=== PATIENT | female | born 1980 | race Two or more races ===

== ENCOUNTER 2017-04-29 10:13 | Emergency (ER) | payer BC ==
[2017-04-29] MEDS ORDERED: Ondansetron 4 MG/2 ML SDV IVPUSH ONE (10:41)
[2017-04-29] MEDS ORDERED: Sodium Chloride 0.9% 1,000 ML IV ONE (10:41)
[2017-04-29] MEDS ORDERED: Ketorolac 30 MG/ML SDV IVPUSH ONE (11:04)
--- NOTE | 2017-04-29 11:04 | EDM.PDOC ---
ED HPI GENERAL MEDICAL PROBLEM - General Chief Complaint: General Stated Complaint: UNK Time Seen by Provider: 04/29/17 10:17 Source of Information: Reports: Patient History Limitations: Reports: No Limitations - History of Present Illness INITIAL COMMENTS - FREE TEXT/NARRATIVE: HISTORY AND PHYSICAL: History of present illness: Patient is a 36-year-old female who presents to the emergency room with complaints of abdominal pain. Patient had a gastric bypass done "many years ago ". She states she had problems with malabsorption and other complications and had to have the gastric bypass surgery reversed on March 23, 2017. Since that time she has had dizziness, generalized abdominal pain, incisional pain, and nausea postop. Her primary care provider, Dr Garvin, is from [facility] and she does see him on a routine basis to manage these symptoms. She states that she had been giving her liquid [place] which seemed to alleviate her abdominal discomfort. She states that her last prescription was a small volume and it would not last her through the weekend. She since has been trying to get a hold of Dr Garvin and is unsuccessful. A friend of hers said that she should to [place] for evaluation as she has had "bad experience" there. When asked what the patient's primary reason for her evaluation today as she is being managed by her PCP, she states that she would like her pain better controlled. Denies any chest pain, shortness of breath, headache, blurred vision, syncope, vomiting or diarrhea. Patient has a long-standing history of chronic anemia which required her to have multiple iron transfusions and resulted in a hysterectomy. History of anxiety which she does take Zantac as needed for. Review of systems: As per history of present illness and below otherwise all systems reviewed and negative. Past medical history: As per history of present illness and as reviewed below otherwise noncontributory. Surgical history: As per history of present illness and as reviewed below otherwise noncontributory. Social history: No reported history of drug or alcohol abuse. Family history: As per history of present illness and as reviewed below otherwise noncontributory. Physical exam: Gen.: Nontoxic-appearing 36-year-old female. Alert and oriented. HEENT: Atraumatic, normocephalic, pupils reactive, negative for conjunctival pallor or scleral icterus, mucous membranes moist, throat clear, neck supple, nontender, trachea midline. Lungs: Clear to auscultation, breath sounds equal bilaterally, chest nontender. Heart: S1S2, regular, negative for clicks, rubs, or JVD. Abdomen: Soft, nondistended, diffuse tenderness throughout. Healed stab sites noted to the abdomen which she reports are tender with palpation and do have scar tissue under the stab sites. She reports no change in the postoperative sites. Negative for masses or hepatosplenomegaly. Negative for costovertebral tenderness. Pelvis: Stable nontender. Genitourinary: Deferred. Rectal: Deferred. Extremities: Atraumatic, negative for cords or calf pain. Neurovascular unremarkable. Neuro: Awake, alert, oriented. Cranial nerves II through XII unremarkable. Cerebellum unremarkable. Motor and sensory unremarkable throughout. Exam nonfocal. Patient does have a port to her right subclavian area which she states they use for blood draws and medication administration. 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 She has seen the bariatric program checker in [place] who does do gastric bypasses and was told that they would not take her on as client as she has too many comorbidities and complications related to her previous surgery. We did discuss the need for her to follow-up with her physician in [place], who/where the surgery was performed. Patient states she understands but is unsure of when she is going to be able to make it back to [place]. Lab and abdominal CT reviewed with the patient. CT did not demonstrate any acute findings. Patient voices understanding and is requesting a 2 day refill of her with [place]. I will give her enough for 2 days until she is able to follow -up with her primary care provider. We did discuss chronic pain management and that it is not ideal for her to present to the emergency room for her refills. Patient is agreeable to plan of care and denies any further questions at this time. Diagnostics: CBC, CMP, troponin, EKG, CT abdomen and pelvis Therapeutics: IV fluid, Zofran, Dilaudid Impression: Chronic abdominal pain Plan: 1. Please take your medications as prescribed. Do not take this medication while driving or needing to be functioning at work as this may cause drowsiness. You will need to follow-up with your primary care provider for additional refills. 2. As we discussed it would be beneficial for you to follow-up with your surgeon from [place] for further evaluation of your chronic pain post surgery. 3. Return to the ED as needed and as discussed Definitive disposition and diagnosis as appropriate pending reevaluation and review of above. Abdomen Pain Score (Numeric/FACES): 8 - Related Data Allergies Allergy/AdvReac Type Severity Reaction Status Date / Time ceftriaxone [From Rocephin] Allergy Shortness Verified 04/29/17 10:21 of Breath ciprofloxacin [From Cipro] Allergy Hives Verified 04/29/17 10:21 morphine Allergy Hives Verified 04/29/17 10:21 prochlorperazine Allergy Shortness Verified 04/29/17 10:21 [From Compazine] of Breath sulfamethoxazole Allergy Hives Verified 04/29/17 10:21 [From Bactrim] trimethoprim [From Bactrim] Allergy Hives Verified 04/29/17 10:21 Home Meds: Home Meds ALPRAZolam [Xanax] 1 mg PO QID PRN 04/29/17 [History] Past Medical History Psychiatric History: Reports: Anxiety - Past Surgical History GI Surgical History: Reports: Bariatric Procedure Social & Family History - Family History Family Medical History: Noncontributory - Tobacco Use Smoking Status *Q: Never Smoker - Recreational Drug Use Recreational Drug Use: No ED ROS GENERAL - Review of Systems Review Of Systems: ROS reveals no pertinent complaints other than HPI. ED EXAM, GENERAL - Physical Exam Exam: See Below (See dictation) Course - Vital Signs Last Recorded V/S: Last Vital Signs Temp 36.7 C 04/29/17 10:22 Pulse 94 04/29/17 12:39 Resp 20 04/29/17 12:39 BP 96/65 04/29/17 12:39 Pulse Ox 98 04/29/17 12:39 - Orders/Labs/Meds Orders: Active Orders 24 hr Category Date Time Status EKG Documentation Completion [RC] STAT Care 04/29/17 10:41 Active Labs: Laboratory Tests 04/29/17 04/29/17 04/29/17 Range/Units 10:42 10:42 10:42 WBC (4.0-11.0) K/uL RBC (4.30-5.90) M/uL Hgb (12.0-16.0) g/dL Hct (36.0-46.0) % MCV (80.0-98.0) fL MCH (27.0-32.0) pg MCHC (31.0-37.0) g/dL RDW Std Deviation (28.0-62.0) fl RDW Coeff of Love (11.0-15.0) % Plt Count (150-400) K/uL MPV (7.40-12.00) fL Neut % (Auto) (48.0-80.0) % Lymph % (Auto) (16.0-40.0) % [place] % (Auto) (0.0-15.0) % Eos % (Auto) (0.0-7.0) % Baso % (Auto) (0.0-1.5) % Neut # (Auto) (1.4-5.7) K/uL Lymph # (Auto) (0.6-2.4) K/uL Troup # (Auto) (0.0-0.8) K/uL Eos # (Auto) (0.0-0.7) K/uL Baso # (Auto) (0.0-0.1) K/uL Nucleated RBC % /100WBC Nucleated RBCs # K/uL Sodium (136-146) mmol/L Potassium (3.5-5.1) mmol/L Chloride (98-110) mmol/L Carbon Dioxide (21-31) mmol/L BUN (6.0-23.0) mg/dL Creatinine (0.6-1.5) mg/dL Est Cr Clr Drug Dosing Estimated GFR (MDRD) ml/min Glucose (60-110) mg/dL Calcium (8.8-10.8) mg/dL Total Bilirubin (0.1-1.5) mg/dL AST (5-40) IU/L ALT (8-54) IU/L Alkaline Phosphatase (40-150) Troponin I (0.0-0.29) NG/ML Total Protein (6.0-8.0) g/dL Albumin (3.5-5.0) g/dL Globulin (2.0-3.5) g/dL Albumin/Globulin Ratio (1.3-2.8) Amylase (10-90) U/L Lipase (7-80) U/L Urine Color YELLOW Urine Appearance CLEAR Urine pH 6.5 (5.0-8.0) Ur Specific [place] <= 1.005 (1.001-1.035) Urine Protein NEGATIVE (NEGATIVE) mg/dL Urine Glucose (UA) NEGATIVE (NEGATIVE) mg/dL Urine Ketones NEGATIVE (NEGATIVE) mg/dL Urine Occult Blood TRACE-INTACT (NEGATIVE) Urine Nitrite NEGATIVE (NEGATIVE) Urine Bilirubin NEGATIVE (NEGATIVE) Urine Urobilinogen 0.2 (<2.0) EU/dL Ur Leukocyte Esterase NEGATIVE (NEGATIVE) Urine RBC 0-2 (0-2/HPF) Urine WBC 0-1 (0-5/HPF) Ur Epithelial Cells RARE (NONE-FEW) Urine Bacteria RARE (NEGATIVE) Urine HCG, Qual NEGATIVE (NEGATIVE) Urine Opiates Screen NEGATIVE (NEGATIVE) Ur Oxycodone Screen NEGATIVE (NEGATIVE) Urine Methadone Screen NEGATIVE (NEGATIVE) Ur Barbiturates Screen NEGATIVE (NEGATIVE) Ur Phencyclidine Scrn NEGATIVE (NEGATIVE) Ur Amphetamine Screen NEGATIVE (NEGATIVE) U Methamphetamines Scrn NEGATIVE (NEGATIVE) U Benzodiazepines Scrn POSITIVE (NEGATIVE) U Cocaine Metab Screen NEGATIVE (NEGATIVE) U Marijuana (THC) Screen NEGATIVE (NEGATIVE) 04/29/17 04/29/17 Range/Units 10:54 10:54 WBC 2.26 L (4.0-11.0) K/uL RBC 3.23 L (4.30-5.90) M/uL Hgb 10.2 L (12.0-16.0) g/dL Hct 31.5 L (36.0-46.0) % MCV 97.5 (80.0-98.0) fL MCH 31.6 (27.0-32.0) pg MCHC 32.4 (31.0-37.0) g/dL RDW Std Deviation 54.4 (28.0-62.0) fl RDW Coeff of Love 15 (11.0-15.0) % Plt Count 205 (150-400) K/uL MPV 10.40 (7.40-12.00) fL Neut % (Auto) 65.9 (48.0-80.0) % Lymph % (Auto) 25.7 (16.0-40.0) % [place] % (Auto) 8.4 (0.0-15.0) % Eos % (Auto) 0.0 (0.0-7.0) % Baso % (Auto) 0.0 (0.0-1.5) % Neut # (Auto) 1.5 (1.4-5.7) K/uL Lymph # (Auto) 0.6 (0.6-2.4) K/uL [place] # (Auto) 0.2 (0.0-0.8) K/uL Eos # (Auto) 0.0 (0.0-0.7) K/uL Baso # (Auto) 0.0 (0.0-0.1) K/uL Nucleated RBC % 0.0 /100WBC Nucleated RBCs # 0 K/uL Sodium 142 (136-146) mmol/L Potassium 4.1 (3.5-5.1) mmol/L Chloride 112 H (98-110) mmol/L Carbon Dioxide 24 (21-31) mmol/L BUN 11 (6.0-23.0) mg/dL Creatinine 0.7 (0.6-1.5) mg/dL Est Cr Clr Drug Dosing TNP Estimated GFR (MDRD) > 60.0 ml/min Glucose 94 (60-110) mg/dL Calcium 8.5 L (8.8-10.8) mg/dL Total Bilirubin 0.3 (0.1-1.5) mg/dL AST 14 (5-40) IU/L ALT 17 (8-54) IU/L Alkaline Phosphatase 92 (40-150) Troponin I < 0.10 (0.0-0.29) NG/ML Total Protein 6.5 (6.0-8.0) g/dL Albumin 3.4 L (3.5-5.0) g/dL Globulin 3.1 (2.0-3.5) g/dL Albumin/Globulin Ratio 1.1 L (1.3-2.8) Amylase 59 (10-90) U/L Lipase 21 (7-80) U/L Urine Color Urine Appearance Urine pH (5.0-8.0) Ur Specific [place] (1.001-1.035) Urine Protein (NEGATIVE) mg/dL Urine Glucose (UA) (NEGATIVE) mg/dL Urine Ketones (NEGATIVE) mg/dL Urine Occult Blood (NEGATIVE) Urine Nitrite (NEGATIVE) Urine Bilirubin (NEGATIVE) Urine Urobilinogen (<2.0) EU/dL Ur Leukocyte Esterase (NEGATIVE) Urine RBC (0-2/HPF) Urine WBC (0-5/HPF) Ur Epithelial Cells (NONE-FEW) Urine Bacteria (NEGATIVE) Urine HCG, Qual (NEGATIVE) Urine Opiates Screen (NEGATIVE) Ur Oxycodone Screen (NEGATIVE) Urine Methadone Screen (NEGATIVE) Ur Barbiturates Screen (NEGATIVE) Ur Phencyclidine Scrn (NEGATIVE) Ur Amphetamine Screen (NEGATIVE) U Methamphetamines Scrn (NEGATIVE) U Benzodiazepines Scrn (NEGATIVE) U Cocaine Metab Screen (NEGATIVE) U Marijuana (THC) Screen (NEGATIVE) Meds: Medications Discontinued Medications Generic Name Dose Route Start Last Admin Trade Name Freq PRN Reason Stop Dose Admin Hydromorphone HCl 0.5 mg 04/29/17 11:21 04/29/17 11:28 Dilaudid IV 04/29/17 11:22 0.5 mg ONETIME ONE Administration Hydromorphone HCl 0.5 mg 04/29/17 12:25 04/29/17 12:54 Dilaudid IM 04/29/17 12:26 Not Given ONETIME ONE Hydromorphone HCl 0.5 mg 04/29/17 12:26 Dilaudid IV 04/29/17 12:27 ONETIME ONE Sodium Chloride 1,000 mls @ 999 mls/hr 04/29/17 10:41 04/29/17 11:22 Normal Saline IV 04/29/17 11:41 999 mls/hr STAT ONE Administration Iopamidol 100 ml 04/29/17 11:15 04/29/17 11:16 Isovue Multipack-370 (76%) IVPUSH 04/29/17 11:16 100 ml ONETIME STA Administration Ketorolac Tromethamine 30 mg 04/29/17 11:04 04/29/17 12:09 Toradol IVPUSH 04/29/17 11:05 Not Given ONETIME ONE Ondansetron HCl 4 mg 04/29/17 10:41 04/29/17 11:21 Zofran IVPUSH 04/29/17 10:42 4 mg ONETIME ONE Administration Departure - Departure Time of Disposition: 12:58 Disposition: Home, Self-Care 01 Clinical Impression: Chronic abdominal pain - Discharge Information Forms: ED Department Discharge Additional Instructions: My general discharge The following information is given to patients seen in the emergency department who are being discharged to home. This information is to outline your options for follow-up care. We provide all patients seen in our emergency department with a follow-up referral. The need for follow-up, as well as the timing and circumstances, are variable depending upon the specifics of your emergency department visit. If you don't have a primary care physician on staff, we will provide you with a referral. We always advise you to contact your personal physician following an emergency department visit to inform them of the circumstance of the visit and for follow-up with them and/or the need for any referrals to a consulting specialist. The emergency department will also refer you to a specialist when appropriate. This referral assures that you have the opportunity for follow-up care with a specialist. All of these measure are taken in an effort to provide you with optimal care, which includes your follow-up. Under all circumstances we always encourage you to contact your private physician who remains a resource for coordinating your care. When calling for follow-up care, please make the office aware that this follow-up is from your recent emergency room visit. If for any reason you are refused follow-up, please contact the [facility] Emergency Department at and asked to speak to the emergency department charge nurse. [facility] [address] [place] [id number] 1. Please take your medications as prescribed. Do not take this medication while driving or needing to be functioning at work as this may cause drowsiness. You will need to follow-up with your primary care provider for additional refills. 2. As we discussed it would be beneficial for you to follow-up with your surgeon from [place] for further evaluation of your chronic pain post surgery. 3. Return to the ED as needed and as discussed - My Orders Last 24 Hours: My Active Orders 04/29/17 10:41 EKG Documentation Completion [RC] STAT - Assessment/Plan Last 24 Hours: My Active Orders 04/29/17 10:41 EKG Documentation Completion [RC] STAT
[2017-04-29] MEDS ORDERED: Iopamidol 755 MG/ML 500 ML Multipack Bottle IVPUSH STA (11:15)
[2017-04-29] MEDS ORDERED: HYDROmorphone 1 MG/ML Syringe IV ONE ×2 (11:21→12:26)
[2017-04-29 11:25] LABS: CHLORIDE,CL 112 mmol/L (98-110); SODIUM,NA 142 mmol/L (136-146)
[2017-04-29] MEDS ORDERED: HYDROmorphone 1 MG/ML Syringe IM ONE (12:25)
--- NOTE | 2017-04-29 12:46 | CT ---
CT of the abdomen and pelvis with contrast. HISTORY: Pain TECHNIQUE: Axial CT images were obtained of the abdomen and pelvis following administration of 100 mL of Isovue-370 without complication. Coronal and sagittal reconstructions obtained. FINDINGS: The lung bases are clear, no pleural effusion. The liver, spleen, adrenal glands, and pancreas appear normal. Cholecystectomy clips are noted. There is mild prominence of the biliary tree filling defect. No bulky retroperitoneal lymphadenopathy or a bdominal ascites. Postsurgical changes are noted secondary to gastric bypass consistent with history of reversal. The kidneys enhance and function symmetrically without evidence of obstructive uropathy. The large and small bowel are normal in caliber without evidence of obstruction. No focal pericolonic inflammation or stranding. The appendix appears normal. The urinary bladder is unremarkable. No sign ificant free pelvic fluid. No free air noted. No pelvic lymphadenopathy. Hysterectomy. Tiny fat-conta ining supraumbilical hernia. The visualized osseous structures appear normal. IMPRESSION: 1. No definite acute findings demonstrated within the abdomen and pelvis. 2. Postsurgical changes secondary to gastric bypass with history of reversal. 3. Cholecystectomy and hysterectomy.
== END 2017-04-29 13:35 | disposition home or self-care (01) ==
LOC: MW.ED 10:13
DX: R10.84 Generalized abdominal pain (principal); G89.29 Other chronic pain; F41.9 Anxiety disorder, unspecified; Z98.84 Bariatric surgery status; Z88.1 Allergy status to other antibiotic agents; Z88.2 Allergy status to sulfonamides; Z88.5 Allergy status to narcotic agent; Z88.8 Allergy status to other drugs, medicaments and biological substances; Z90.49 Acquired absence of other specified parts of digestive tract; Z90.710 Acquired absence of both cervix and uterus
CPT/HCPCS: 36415; 74177; 80053; 80305; 81001; 81025; 82150; 83690; 84484; 85025; 93005; 96361; 96374; 96375; 96376; 99284; J1170; J1642; J2405; J7040; Q9967